=== PATIENT | male | born 1990 | race Caucasian/White ===

== ENCOUNTER 2023-11-09 13:06 | Outpatient (CLI) | payer OTHER ==
--- NOTE | 2023-11-09 13:36 | Sleep Patient Instructions ---
Sleep Center Visit Summary - Patient Visit Information Reason for Visit: Initial consult for evaluation of sleep disordered breathing and other sleep issues. - Patient Instructions Instructions Attached: Sleep Study Home Monitor Additional Instructions: You will be completing a sleep study, either an in-lab polysomnography (PSG) or home sleep study (HST). You will follow-up in the sleep care office after the sleep study is completed to hear the results and talk about therapy, if needed. You will be called by our office staff to schedule this appointment, but you may contact us with any questions. - Clinic Information Contact: [facility] [address] [place] [address] [email or web address] T: [phone]
--- NOTE | 2023-11-09 13:41 | SLEEP CARE CONSULTATION ---
Information from patient questionnaire entered by Wally Johnson. I have reviewed and concur with the information entered by Wally Johnson. This document represents the service I personally performed and the decisions made by me, Gay Gallego ARNP. History of Present Illness Service Date and Time: 11/09/2023 1306 Reason for Visit: New patient Chief Complaint: reports: Unrefreshed sleep, Snoring, Observed pauses in breathing, Fatigue, Frequent awakenings at night Date of Onset: 22YRS Usual bedtime: 1030-1100M Time it takes to fall asleep: 30MIN-60MIN Snores at night: Yes Observed to quit breathing while asleep: Yes Sleeps alone due to snoring: Yes Number of times waking at night: 1-2 Reasons for waking at night: reports: Snoring, Gasping for air (just couple times), Other ( WAKES ME DUE TO SNORING; wakes up with sore throat due to snoring). denies: Choking Toss, Turn, or Twitch while sleeping: Yes Recalls having dreams: No Usually gets out of bed at: [id number] Feels refreshed in the morning: No Morning headache: No Sleepy or fatigued during the day: Yes (no unintentional naps) Ever fallen asleep while driving: No Takes day naps: No Dreams during day naps: No Prior sleep studies: No Additional HPI information: I had the pleasure of seeing TEX BARNES today regarding the possibility of him having a sleep disorder. His current complaints are unrefreshed sleep, snoring, observed pauses in breathing, fatigue and frequent night awakenings. He says his has encouraged him to seek evaluation for his loud snoring, pauses in breathing and he states he needs "considerable amount of caffeine" to "kick start" the day. His will sleep on couch because of his snoring. His will nudge him at night to turn over because of snoring as well when in bed. He tried to get some testing when he was in [place] but was unable to get in when there. He would like to get better sleep and feel more rested in the morning. 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 Patient is and lives in . Have you smoked in the past 12 months: Yes (Vaping) Cigarettes per day (20/pack): 20 (A LOT) Years of smokin (PLUS) Smoking Pack Years: 10.0 Alcohol use: Yes Alcohol amount and frequency: 2-3 DRINKS 2-3 DAYS A WEEK Caffeine use: Yes Caffeine amount and frequency: 32OZ MUG DAILY Family History Family history of sleep disordered breathing: Yes Family Hx Sleep Apnea: Father: Snoring, Grandparent: Snoring Allergies and Home Medications Known drug allergies: No Drug allergies reviewed: Yes Home medication list reviewed: Yes Allergy and home medication list: Allergies No Known Drug Allergies Allergy (Verified 11/09/23 13:19) Home Medications No Known Home Medications 11/09/23 [History] Review of Systems Weight gain over past 5 years: 45, up now Weight loss over past 5 years: 45 Cardiovascular: denies: high blood pressure Gastrointestinal: denies: heartburn Neurological: denies: headaches, seizure Psychiatric: denies: anxiety, depression Ear/Nose/Throat: reports: wisdom teeth removed. denies: tonsillectomy Endocrine: denies: thyroid disease Immunologic: reports: allergies to food or environment (mild seasonal) Physical Exam Vital signs obtained and entered by: WALLY Armando MA Blood Pressure: 133/86 (RIGHT ARM) Cuff size: long Heart Rate: 87 O2 Saturation: 95 Height: 5 ft 10 in Weight: 245 lb 9.6 oz Body Mass Index: 35.2 BMI Classification: Obese Neck circumference: 17 Mouth and throat: narrow oropharynx Soft palate: long Hard palate: normal Uvula: normal Uvula visualization: 25% Mallampati Class III Tongue: normal in size Tonsils: small Neck: normal w/o lymphadenopathy or thyromegaly Heart: regular rate and rhythm Lungs: clear bilaterally Impression and Plan 1. Suspected Obstructive Sleep Apnea-Hypopnea Syndrome, as suggested by a history of loud and irregular snoring, observed cessation of breath while asleep, gasping or choking in sleep, frequent awakening during the night and unrefreshed sleep. Narrow oropharynx and obesity are common predisposing factors for obstructive sleep apnea-hypopnea syndrome. I recommend proceeding to polysomnography to confirm the diagnosis and to assess severity. If the patient has significant sleep disordered breathing, a manual CPAP titration study will also be performed to find the optimal treatment pressure. I informed the patient of what the sleep studies involve and after some discussion, obtained agreement to proceed. The pathophysiology of obstructive sleep apnea-hypopnea syndrome was discussed with the patient and health risks of cardiovascular and cerebrovascular disease if not treated. Risks of drowsy driving discussed in detail and patient advised to avoid long distance driving and to candy puller at the first sign of drowsiness. Patient agreed to plan. * Schedule polysomnography. * Avoid long distance driving or driving when feeling sleepy. * Avoid alcohol, sedative and muscle relaxant around bedtime. * Attempt to lose weight. * Review instructions provided by trained office staff on how to prepare for the sleep study. * Return for follow-up after sleep study completed. Counseling Topics: Weight loss health impact Plan: PSG and followup Visit Type: In Office Time Spent with Patient (minutes): 30 Provider Statement: I spent 100% of the Face to Face Visit with the patient with greater than 50% spent counseling the patient and coordination of care.
[2023-11-09 14:02] VITALS: BP 133/86; O2SAT 95
== END 2023-11-09 13:07 | disposition home or self-care (01) ==
LOC: SC 13:06
PROVIDERS: ATTEND Nurse Practitioner Family
DX: R06.83 Snoring (principal); G47.8 Other sleep disorders; R06.81 Apnea, not elsewhere classified; R53.83 Other fatigue; E66.9 Obesity, unspecified; Z68.35 Body mass index [BMI] 35.0-35.9, adult; F17.290 Nicotine dependence, other tobacco product, uncomplicated
CPT/HCPCS: 99203; 99212

== ENCOUNTER 2023-11-30 08:52 | Outpatient (CLI) | payer OTHER | END 2023-11-30 08:53 | disposition home or self-care (01) | LOC: SC 08:52 | PROVIDERS: ATTEND Nurse Practitioner Family | DX: G47.33 Obstructive sleep apnea (adult) (pediatric) (principal); R09.02 Hypoxemia; E66.9 Obesity, unspecified; Z68.35 Body mass index [BMI] 35.0-35.9, adult | CPT/HCPCS: 95806 ==

== ENCOUNTER 2023-12-08 08:49 | Outpatient (CLI) | payer OTHER ==
--- NOTE | 2023-12-08 09:23 | Sleep Patient Instructions ---
Sleep Center Visit Summary - Patient Visit Information Reason for Visit: Sleep study followup - Patient Instructions Instructions Attached: CPAP Additional Instructions: You are being started on CPAP therapy with pressure setting at 4-15 cmH2O. You w ill need to call the sleep care office to set up your follow up once you have your APAP machine and we will schedule a visit to check compliance and response to therapy at that time. You may call the office with any concerns about pressure feeling too low or too much for adjustment, if needed. You should contact DME supplier for any questions or concerns about mask or equipment. Please call office to schedule a follow up appointment in the sleep care office one month after obtaining new device. - Clinic Information Contact: [facility] [address] [place] [address] [email or web address] T: [phone]
--- NOTE | 2023-12-08 09:26 | SLEEP CARE CONSULTATION ---
Information from patient questionnaire entered by Jeannine Johnson. I have reviewed and concur with the information entered by Jeannine Johnson. This document represents the service I personally performed and the decisions made by me, Gay Gallego ARNP. History of Present Illness Service Date and Time: 12/08/2023 0849 Initial [place] Sleepiness Scale score: 5 (11/09/23) Current [place] Sleepiness Scale score: 5 (12/08/23) Additional HPI information: TEX BARNES returns for follow up and results of the recently performed home sleep study. The sleep study showed moderate obstructive sleep apnea with an average AHI of 22.2 and abhi oxygen saturation of 74%. I explained the pathophysiology behind obstructive sleep apnea. We then spent quite a bit of time discussing different treatment options. For mild obstructive sleep apnea, surgery and oral appliance are alternatives to nasal CPAP therapy but in moderate or severe cases, nasal CPAP is the most effective and reliable treatment. Because apnea is primarily in supine position, then positional management therapy could be effective. Methods discussed such as positioning with pillows, using a T-shirt with tennis balls in the back or commercial products that have a pillow format on back to prevent supine sleep. I reviewed the impact of weight changes on sleep apnea and strongly recommended losing weight. After some discussion, the patient opted to go with the nasal CPAP therapy. Nasal autoCPAP set at 4-15 cmH20 will be ordered with rationale explained. A manual titration study will be ordered if unable to find optimal pressure with office adjustments. I explained how CPAP machine works and what to expect when using the machine. Using CPAP every night in order to get used to it was emphasized. Patient advised to put CPAP mask on before getting into bed so as not to fall asleep without CPAP. To assist acclimation to CPAP use, it could also be used for a short time during day while reading or watching TV. The patient was instructed to call the CPAP supplier to discuss any mechanical problem that may occur. If the mask given is uncomfortable or is difficult to keep on through the night even with adjustment, contact the CPAP supplier as many will replace with another mask style if notified before 30 days. If snoring or perceives is not getting enough air or too much air from the machine, notify this office. Patient counseled not drink alcohol less than 4 hours before bedtime as it can increase snoring and apnea. Patient was cautioned about risks of drowsy driving until sleepiness symptoms resolve. Patient denies drowsy driving. Sleep Study - Results Type of Sleep Study: Home sleep study (COMPLETED 11/30/23) Prior sleep studies: No Polysomnography/Home Sleep Study results: Physician Impression: The quality of the study is good. The length of the study is adequate (> 240 minutes). Please also see the tabulated and graphic data. 1. Obstructive Sleep Apnea-Hypopnea (ICD-10 G47.33), moderate, with an AHI of 22.2/hr and abhi SaO2 of 74%. During the study, the patient had 71 apneas (71 obstructive, 0 central, 0 mixed) and 107 hypopneas. The longest episode lasted 88.5 seconds. The respiratory events occurred more frequently during supine sleep (supine AHI was 72.5 and non-supine, 15.94). 2. Hypoxemia (ICD-10 R09.02), moderate, with the lowest oxygen saturation of 74 % and 81.7 minutes with SaO2 under 90%. Baseline oxygen saturation was normal (Average oxygen saturation was 91%). Allergies and Home Medications Known drug allergies: No Drug allergies reviewed: Yes Home medication list reviewed: Yes (no changes) Allergy and home medication list: Allergies No Known Drug Allergies Allergy (Verified 12/07/23 12:48) Review of Systems Review of systems same as previous: Yes (NO CHANGE) Physical Exam Vital signs obtained and entered by: JEANNINE Armando MA Blood Pressure: 150/84 (RIGHT ARM) Cuff size: regular Heart Rate: 93 O2 Saturation: 95 Height: 5 ft 10 in Weight: 248 lb 12.8 oz Body Mass Index: 35.6 BMI Classification: Obese Impression and Plan 1. Obstructive Sleep Apnea-Hypopnea Syndrome, moderate, with lowest oxygen saturation of 74%. Obviously this is the cause of the patients symptoms of unrefreshed sleep, and excessive daytime sleepiness. As mentioned above, the patient will be started on nasal autoCPAP therapy with pressure set at 4-15 cmH2 O. Compliance guidelines also reviewed. A copy of compliance guidelines will be given for reference at check out. Because the apnea is more severe supine, I instructed to avoid sleeping supine using pillow positioning until able to start CPAP use. 2. Hypoxemia, moderate, with a abhi oxygen saturation of 74% and 81.7 minutes spent under 90%. The baseline oxygen saturation was normal with an average oxygen saturation of 91%. 3. Obesity, unspecified. Currently patients BMI is 35.6. Obesity increases the risk of apnea, CPAP pressure requirements and overall health risks especially cardiovascular and diabetes. Thus patient is advised to lose weight. * Nasal auto CPAP therapy, pressure at 4-15 cm H2O. * Attempt to lose weight. * Avoid alcohol consumption near bedtime. * Avoid supine sleep until using CPAP. * The patient is again cautioned about driving until sleepiness completely resolves. * Return one month after CPAP obtained. I will assess response to therapy and compliance at that time. Counseling Topics: Weight loss health impact Prescriptions: Auto CPAP Follow up with Sleep Care in: other (compliance visit) Visit Type: In Office Time Spent with Patient (minutes): 20 Provider Statement: I spent 100% of the Face to Face Visit with the patient with greater than 50% spent counseling the patient and coordination of care.
[2023-12-08 09:29] VITALS: BP 150/84; O2SAT 95
== END 2023-12-08 08:50 | disposition home or self-care (01) ==
LOC: SC 08:49
PROVIDERS: ATTEND Nurse Practitioner Family
DX: G47.33 Obstructive sleep apnea (adult) (pediatric) (principal); R09.02 Hypoxemia
CPT/HCPCS: 99212; 99213

== ENCOUNTER 2024-08-15 11:11 | Outpatient (CLI) | payer OTHER ==
--- NOTE | 2024-08-15 11:58 | Sleep Patient Instructions ---
Sleep Center Visit Summary - Patient Visit Information Reason for Visit: First compliance follow-up for PAP therapy - Patient Instructions Additional Instructions: You were here for follow up of CPAP therapy. You will be continued on CPAP therapy with pressure at 10-12 cmH2O. Please let us know if the pressure change is uncomfortable and we can make further adjustments of the pressure. You should follow up with sleep care in 1-2 months. You may contact us sooner for any questions or concerns. - Clinic Information Contact: [facility] [address] [place] [address] [email or web address] T: [phone]
--- NOTE | 2024-08-15 12:02 | SLEEP CARE CONSULTATION ---
Information from patient questionnaire entered by Ele Oconnell. I have reviewed and concur with the information entered by Ele Oconnell. This document represents the service I personally performed and the decisions made by , Gay Gallego ARNP. History of Present Illness Service Date and Time: 08/15/2024 1111 Previous diagnosis: Moderate, Obstructive Sleep Apnea-Hypopnea Syndrome AHI: 22.2 (11/30/2023) Reason for follow up: first compliance (12/22 set up) Equipment type: CPAP (ResMed Airsense 10, s/u 12/22/23) Equipment obtained from: Other ([facility]; getting supplies) Mask style: Full face (Simplus, medium cushion) Backup mask available: Yes (old mask) Last cushion change: rotating through 3 cushion, keep cleaned in between Prior sleep studies: No Type of Sleep Study: Home sleep study (COMPLETED 11/30/23) HPI additional information: TEX BARNES was diagnosed to have moderate, AHI 22.2, obstructive sleep apnea-hypopnea syndrome and returned today for CPAP therapy first compliance follow-up. Sleep Study - Results Type of Sleep Study: Home sleep study (COMPLETED 11/30/23) Prior sleep studies: No CPAP Compliance Data - Data Reviewed with Patient Average duration of nightly device use: 6 h 52 min Compliance rate %: 70 (01/15/24-02/13/24) Current pressure setting (cmH2O): 4 - 15 (median 7.7, avg 11, max 12.9) Average residual AHI: 3.5 Central apnea: 0.5 Obstructive apnea: 2.4 Hypopnea: 0.6 Average large leak: 0.5 L/min Subjective Missed days of use due to: reports: travel, other (Fell asleep without putting it on) Patient concerns: reports: aerophagia (happens seldom), mask leak noise (Seldom), other (Snore while using device, restless legs/kicking when asleep). denies: mask discomfort, air blowing in eyes, condensation in mask/hose, nasal congestion, dry mouth, nose, throat, epistaxis Observed to snore while using device: Yes (occasional per ) Current pressure setting perceived as: too low (Maybe?) On therapy, patient: reports: sleeping better, awakening more refreshed, being more awake and alert during the day, more rested overall. denies: drowsiness while driving Initial [place] Sleepiness Scale score: 5 (11/09/23) Current [place] Sleepiness Scale score: 6 (08/15/24) Allergies and Home Medications Known drug allergies: No Drug allergies reviewed: Yes Home medication list reviewed: Yes (Tadanafil) Allergy and home medication list: Allergies No Known Drug Allergies Allergy (Verified 08/15/24 11:48) Home Medications Tadalafil See Rx Instructions .ROUTE .COMPLEX 08/15/24 [History] Review of Systems Review of systems same as previous: Yes (no changes) Physical Exam Vital signs obtained and entered by: Gay Galvez NP Blood Pressure: 138/87 Cuff size: long (left arm) Heart Rate: 90 O2 Saturation: 98 Height: 5 ft 10 in Weight: 235 lb Weight change since last visit: 13 lb loss Body Mass Index: 33.7 BMI Classification: Obese Impression and Plan 1. Obstructive Sleep Apnea-Hypopnea Syndrome, moderate, with good treatment compliance and good apnea control. On CPAP therapy, the patient has better sleep quality and is more rested overall. 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 He is doing well with his CPAP. He gets occasional paraphasia but states its only once or twice a month. Since getting back, his has commented that he occasionally will snore with his mask on. The patients pressure will be changed to autoCPAP 10-12 cmH20 to reflect pressure being used and to try to reduce aerophagia and snoring. Patient advised to contact me if pressure change is uncomfortable so that it can be adjusted. Goals for apnea control discussed. Patient's apnea severity and rationale for treatment to reduce apnea, improve sleep quality and reduce cardiovascular and cerebrovascular events was reviewed. 2. Obesity, unspecified. Currently patients BMI is 33.7. He has lost weight. Obesity increases the risk of apnea, CPAP pressure requirements and overall health risks especially cardiovascular and diabetes. Thus patient is advised to continue to try to lose weight. * Change auto CPAP pressure to 10-12 cmH2O * Notify me if snoring with mask or feeling that the pressure is too much or too little * Continue to try to lose weight * Call this office if any problems using CPAP * Return for follow up in 1-2 months, or sooner if concerns arise Adjust device pressure to (cmH2O): 10-12 Counseling Topics: Spare mask, Weight loss health impact Follow up with Sleep Care in: 1-2 months Visit Type: In Office Time Spent with Patient (minutes): 22 Provider Statement: I spent 100% of the Face to Face Visit with the patient with greater than 50% spent counseling the patient and coordination of care.
[2024-08-15 12:11] VITALS: BP 138/87; O2SAT 98
== END 2024-08-15 11:12 | disposition home or self-care (01) ==
LOC: SC 11:11
PROVIDERS: ATTEND Nurse Practitioner Family
DX: G47.33 Obstructive sleep apnea (adult) (pediatric) (principal); E66.9 Obesity, unspecified; Z68.33 Body mass index [BMI] 33.0-33.9, adult
CPT/HCPCS: 99212; 99213